=== PATIENT | male | born 1975 | race Caucasian/White ===

== ENCOUNTER 2024-10-17 11:47 | Outpatient (CLI) | payer MEDICARE, MEDICAID, SELFPAY ==
--- NOTE | 2024-10-17 12:14 | DI.RAD_ITS ---
Exam(s) XR CHEST 2V PA LATERAL EXAM: XR CHEST 2V PA LATERAL CLINICAL HISTORY: COUGH, R05.9 TECHNIQUE: 2D digital imaging was performed. Two views. COMPARISON: No exams were available for comparison FINDINGS: HEART: Normal size. Aorta: Not dilated. PULMONARY VASCULATURE: Normal. MEDIASTINUM: Unremarkable. LUNGS: Clear. PLEURAL SPACE: No pleural effusion or pneumothorax. BONE:Unremarkable for age. SOFT TISSUES: Unremarkable. IMPRESSION: No acute abnormality. DATA REPOSITORY: RADIATION DOSE DELIVERED:
== END 2024-10-17 12:07 ==
PROVIDERS: Visit Provider Nurse Practitioner Family
DX: R05.9 Cough, unspecified (principal)
CPT/HCPCS: 71046

== ENCOUNTER → 2025-01-25 13:08 | Outpatient (BNVA) | payer MEDICARE, MEDICAID, SELFPAY | PROVIDERS: PCP Nurse Practitioner Family; Referring Provider Nurse Practitioner Family; Visit Provider Physical Therapy Assistant | DX: Z12.11 Encounter for screening for malignant neoplasm of colon (principal) | CPT/HCPCS: S0285 ==

== ENCOUNTER 2025-02-08 06:35 | Day surgery (SDC) | payer MEDICARE, MEDICAID, SELFPAY ==
[2025-02-08 07:15] VITALS: BP 151/84; PULSE 75; RESP 20; TEMP 36.7; O2SAT 97
[2025-02-08] MEDS: Lactated Ringers 1,000 ML 80 ML IV (07:32)
--- NOTE | 2025-02-08 07:55 | W.COLOREPORT ---
Date of service: 02/08/25 Time of Service: 07:55 Colonoscopy Report Procedure Description: PROCEDURES PERFORMED: 1. Colonoscopy with cold forceps biopsies PREOPERATIVE DIAGNOSIS: Surveillance colonoscopy POSTOPERATIVE DIAGNOSIS: Sigmoid diverticulosis SURGEON: Tulio Louis MD INDICATION FOR PROCEDURE: the patient is a 49-year-old man with no family history of colon cancer due for his for screening colonoscopy. He has no symptoms of concern. He says that he had a colonoscopy many years ago and it was normal. It was done for other reasons. FINDINGS: Normal terminal ileum. Minimal/mild, scattered diverticular changes isolated to the sigmoid colon. There was a little bit of inflammation seen around the sigmoid colon which could represent SCAD. Cold forceps biopsies were taken to assess. No polyps. No significant hemorrhoid disease. SURVEILLANCE interval/FOLLOW-UP: 10 years SPECIMENS: Sigmoid colon biopsies EBL: Minimal COMPLICATIONS: None QUALITY of prep: Excellent Procedure in detail: The patient gave written consent and was in agreement with the indications, the potential risks as well as the benefits of the procedure. They were taken to the endoscopy suite and laid in the left lateral decubitus position. A timeout was performed and anesthesia was administered which was tolerated well. I started the procedure. Digital rectal and visual examination was performed and grossly within normal limits. A well-lubricated flexible colonoscope was then introduced and passed without any notable difficulty all the way to the cecum identified by the ileocecal valve and the appendiceal orifice. The terminal ileum was intubated and looked normal. The scope was then slowly withdrawn with the above-noted findings. The patient tolerated the procedure well and was taken to the PACU in hemodynamically stable condition.
--- NOTE | 2025-02-08 07:56 | W.PM.DSUDISC ---
Date of service: 02/08/25 Discharge Plan Disposition Patient Disposition: Home Discharge Details Attending Provider: Donald Louis Primary Care Provider: Renee Krishnamurthy Home Meds and New Rx's Prescriptions: No Action fluoxetine 40 mg capsule 40 mg PO DAILY mirtazapine 15 mg tablet 15 mg PO DAILY propylthiouracil 50 mg tablet 50 mg PO BID bupropion HCl 150 mg tablet sustained-release 12 hr 150 mg PO DAILY hydroxyzine HCl 10 mg tablet 10 mg PO QHS cholecalciferol (vitamin D3) 25 mcg (1,000 unit) capsule 25 mcg PO DAILY multivitamin Tablet 1 tab PO DAILY polyethylene glycol 3350 17 gram/dose powder 238 g PO ONCE Qty: 238 0RF Rx Instructions: take per colonoscopy instructions bisacodyl [Dulcolax (bisacodyl)] 5 mg tablet,delayed release (DR/EC) 5 mg PO ONCE Qty: 4 0RF Rx Instructions: take per colonoscopy instructions simvastatin 10 mg tablet Patient Comments: pt. thinks he is taking this at night Discharge Instructions Additional Instructions: FINDINGS: No cancer. No polyps. No findings of concern. Mild sigmoid diverticular disease was found. Diverticulosis. This is a very common, benign condition and nothing needs to be done about it. Repeat another colonoscopy in 10 years. Activity:: Activity as Tolerated Diet:: As Tolerated Discharge Orders Discharge Orders: Discharge Order (Routine); Ordered 02/08/25 Ordered By: Donald Louis
--- NOTE | 2025-02-08 08:07 | W.ANESPRE ---
General Info Date of Service Date Performed: 02/08/25 Height: 5 ft 10 in Weight: 93.8 kg Body Mass Index (BMI): 29.7 Surgical Procedure: Operation Date: 02/08/25 08:05 Proposed Procedure Side Surgeon p Colonoscopy Donald Louis MD Actual Procedure Side Surgeon p Colonoscopy Not Applicable Donald Louis MD Meds Allergies and Home Medications Allergies Allergy/AdvReac Type Severity Reaction Status Date / Time No Known Allergies Allergy Verified 02/08/25 07:11 Home Medication ?Medication ?Instructions ?Recorded fluoxetine 40 mg capsule 40 mg PO DAILY 11/15/24 mirtazapine 15 mg tablet 15 mg PO DAILY 11/15/24 propylthiouracil 50 mg tablet 50 mg PO BID 11/15/24 bupropion HCl 150 mg tablet,12 hr 150 mg PO DAILY 11/23/24 sustained-release cholecalciferol (vitamin D3) 25 25 mcg PO DAILY 11/23/24 mcg (1,000 unit) capsule hydroxyzine HCl 10 mg tablet 10 mg PO QHS 11/23/24 multivitamin 1 tab PO DAILY 11/23/24 bisacodyl 5 mg tablet,delayed 5 mg PO ONCE colonscopy bowel prep 01/25/25 release (Dulcolax (bisacodyl)) #4 tabs polyethylene glycol 3350 17 238 g PO ONCE colonoscopy prep 01/25/25 gram/dose oral powder #238 grams simvastatin 10 mg tablet mg 02/08/25 Current Visit Medications: Current Medications Generic Name Dose Route Start Last Admin Trade Name Freq PRN Reason Stop Dose Admin Ringer's Solution 1,000 mls @ 80 mls/hr 02/08/25 06:00 02/08/25 07:32 IV 02/08/25 23:59 80 mls/hr INFUSION SIDNEY Administration IV Miscellaneous Supplies 1 each 02/08/25 06:00 Iv Access IV 02/08/25 23:59 DIRECTED SIDNEY Sodium Chloride 0 ml 02/08/25 06:00 Normal Saline Flush 10 Ml Syr IV 02/08/25 23:59 PRN PRN Sodium Chloride 0 ml 02/08/25 06:00 Normal Saline 10 Ml Vial IJ 02/08/25 23:59 DIRECTED PRN Sterile Water 0 ml 02/08/25 06:00 Water,Injection,Sterile 10 Ml Vial IJ 02/08/25 23:59 DIRECTED PRN PFSH Active Problems Active Problems: Problem Status Onset Code Developmental disability Chronic F89 Hyperthyroidism Chronic E05.90 Generalized anxiety disorder Chronic F41.1 Major depressive disorder Chronic F32.9 Vitamin D deficiency Chronic E55.9 Insomnia Chronic G47.00 Allergic rhinitis Chronic J30.9 Medical History Medical History Hypertension Surgical History Surgical History H/O vasectomy Tobacco Smoking/Tobacco Use Status: Never Passive smoking exposure: No Alcohol Alcohol Intake: current Alcohol intake frequency: a few times a month Alcohol type: beer Substance Use Substance use: Never Substance use type: does not use Details: beer: pt. does not remember Vital Signs and Lab Results Vital Signs Most Recent Vital Signs in EMR: Most Recent Vital Signs Temp Pulse Resp BP Pulse Ox 36.7 C 75 20 151/84 H 97 02/08/25 07:15 02/08/25 07:15 02/08/25 07:15 02/08/25 07:15 02/08/25 07:15 Lab Results Blood Type / Crossmatch: No Data to Display Complete Blood Count: No Data to Display Complete Metabolic Panel: No Data to Display Liver Function Panel: No Data to Display Coagulation Panel: No Data to Display Cardiac Panel: No Data to Display Arterial Blood Gas: No Data to Display Venous Blood Gas: No Data to Display Pancreas Panel: No Data to Display Thyroid Panel: No Data to Display Infectious Disease: No Data to Display Blood Cultures: No Data to Display Toxicology Panel: No Data to Display Anesthesia Assessment and Plan Anesthesia History Personal History: No History of Anesthesia Complications Family History: No Family History of Anesthesia Complications Exercise Tolerance Exercise Tolerance: Metabolic Equivalents>4 Pertinent Negatives Pertinent Negatives: No Symptoms of GERD Cardiac & Pulmonary Exam Cardiac Exam: Normal S1/S2 Heart Sounds Pulmonary Exam: Clear Bilateral Breath Sounds Implantable Cardiac Device Does patient have a Pacemaker or an ICD?: No Airway Exam Known Difficult Airway: No Mallampati Class: 2 Mouth Opening: Normal (> 3cm) Thyromental Distance: Greater than 3 cm Neck Range of Motion: Full ROM Neck Circumference: Normal Teeth Condition: Normal Dentition ASA Classification ASA Score: ASA 2 Emergency Case?: No NPO Status NPO Status: NPO Clears >2 hours, Solids >8 hours Anesthesia Plan Resuscitation Status: Full Code Anesthesia Technique: General Anesthesia Airway Planned: Natural Airway Monitors Used: Standard Monitors
[2025-02-08 08:08] VITALS: BMI 29.7
--- NOTE | 2025-02-08 08:22 | BOWEL_PTH ---
PATIENT: Greg Mendez LOC: [facility] U#:[id number] AGE/SX: 49/M ROOM: RE02/08/[address]: Donald Louis : 1975 BED: DIS: 02/08/2025 SPEC #: [id number] RECD: 02/08/25 12:50 STATUS: ZANE REPrashanth #: [id number] TALIA: 02/08/25 08:[address]: Donald Louis DEPT: Surgical Specimen RECD BY: Marjan Madera ENTERED: 02/08/25 12:51 SP TYPE: Bowel OTHR DR: KRISTYN Negrete Tissues: 1 - BIOPSY BOWEL Procedures: GROSS AND MICRO LEVEL 4 Comments: [id number]
[2025-02-08 08:30] VITALS: BP 141/95; PULSE 75; RESP 16; TEMP 36.2; O2SAT 99
--- NOTE | 2025-02-08 08:39 | W.ANESPOSTOP ---
Postoperative Evaluation Date, Time and Location Date Performed: 02/08/25 Time Performed: 08:39 Patient Location: Day Surgery Unit Vital Signs Most Recent Imported Vital Signs: Most Recent Vital Signs Temp Pulse Resp BP Pulse Ox 36.7 C 75 20 151/84 H 97 02/08/25 07:15 02/08/25 07:15 02/08/25 07:15 02/08/25 07:15 02/08/25 07:15 Pain Score Most Recent Pain Score: Most Recent Pain Score Pain Level 0 02/08/25 07:15 Assessment Mental Status: Awake (Alert & Oriented to Patient Baseline) Airway and Respiratory Function: Patent airway with normal (patient baseline) respiratory exam Cardiovascular Function: Hemodynamically Stable Hydration Status: Adequately Hydrated Nausea & Vomiting: No Nausea or Vomiting Pain: Pt. Denies Any Pain Peripheral Nerve Block: Patient did not receive a nerve block
== END 2025-02-08 09:16 | disposition home or self-care (01) ==
PROVIDERS: PCP Nurse Practitioner Family; Visit Provider Student in an Organized Health Care Education/Training Program
PROC: 0DJD8ZZ Inspection of Lower Intestinal Tract, Via Natural or Artificial Opening Endoscopic (ICD-10-PCS; CPT 45378; principal; 2025-02-08 08:00)
DX: Z12.11 Encounter for screening for malignant neoplasm of colon (principal); K57.30 Diverticulosis of large intestine without perforation or abscess without bleeding
CPT/HCPCS: 45380; 88305; J2003; J2704

== ENCOUNTER 2025-05-26 11:00 | Outpatient (CLI) | payer MEDICARE, MEDICAID, SELFPAY ==
[2025-05-26 14:32] LABS: Abs Immature Grans 0.05 10^3/uL (0.0-0.06); HCT 46.8 % (40.0-50.0); HGB 15.7 g/dL (13.5-17.5); Immature Grans % 0.9 %; MCH 30.1 pg (27.0-33.0); MCHC 33.5 % (32.0-36.0); MCV 90 fL (80-95); MPV 9.8 fL (8.0-11.0); Platelet Count 275 10^3/uL (130-400); RBC 5.22 10^6/uL (4.36-5.78); RDW 13.2 % (11.8-14.1); RDW-SD 43.4 fL; WBC 5.61 10^3/uL (4.4-10.8)
[2025-05-26 15:13] LABS: ALT 44 U/L (16-63); AST 32 U/L (15-37); Albumin 4.2 g/dL (3.4-5.0); Alkaline Phosphatase 90 U/L (46-116); Anion Gap 5.6 mmol/L (3-11); BUN 13 mg/dL (7-18); Bilirubin, Total 0.8 mg/dL (0.2-1.0); CO2 31.4 mmol/L (21.0-32.0); Calcium 8.9 mg/dL (8.5-10.1); Chloride 104 mmol/L (98-107); Estimated GFR 91.12 (mL/min/1.73m2); Glucose 90 mg/dL (74-106); Potassium 3.7 mmol/L (3.5-5.1); Sodium 141 mmol/L (136-145); TSH 2.06 uIU/mL (0.36-3.74); Total Protein 7.6 g/dL (6.4-8.2)
[2025-05-26 16:02] LABS: Calculated LDL 125 mg/dL (<100); Cholesterol 207 mg/dL (<200); HDL Cholesterol 52 mg/dL (>or=40); Triglyceride 150 mg/dL (<150); Vitamin D 25 Total 51 ng/mL (30-100)
[2025-05-26 16:50] LABS: Hemoglobin A1C 5.0 % (<5.7)
[2025-05-26 22:39] LABS: T3, Total 156 ng/dL (97-169)
[2025-05-29 08:59] LABS: HIV-1/2 Ag & Ab Screen Negative (Negative)
[2025-05-31 10:48] LABS: HBs Antibody, Quant <3.1 mIU/mL (See Note); Hepatitis B Surface Antigen Negative (Negative)
[2025-06-07 15:46] LABS: Hepatitis C Ab w Rflx HCV PCR Negative (Negative)
== END 2025-05-26 11:01 | disposition home or self-care (01) ==
LOC: LOS 11:01
PROVIDERS: PCP Nurse Practitioner Family; Visit Provider Nurse Practitioner Family
DX: E05.90 Thyrotoxicosis, unspecified without thyrotoxic crisis or storm (principal); Z11.59 Encounter for screening for other viral diseases; Z11.4 Encounter for screening for human immunodeficiency virus [HIV]; R73.01 Impaired fasting glucose; E55.9 Vitamin D deficiency, unspecified
CPT/HCPCS: 36415; 80053; 80061; 82306; 86704; 86706; 86803; 87340; 87389; 83036; 84439; 84443; 84480; 85025

== ENCOUNTER 2025-06-20 01:12 | Outpatient (CLI) | payer MEDICARE, MEDICAID, SELFPAY ==
--- NOTE | 2025-06-20 06:15 | DI.US_ITS ---
Exam(s) US THYROID EXAM: US THYROID CLINICAL HISTORY: hx of hyperthyroidism,e05.90. TECHNIQUE: Ultrasound thyroid performed using standard protocol. COMPARISON: No exams were available for comparison FINDINGS: ISTHMUS: 3.6 mm RIGHT LOBE: Size: 6.0 x 2.0 x 2.7 cm Echogenicity: Normal. Vascularity: Hypervascular. Nodules: There are no suspicious nodules. There are 2 small cysts present. LEFT LOBE: Size: 5.2 x 1.8 x 2.3 cm Echogenicity: Normal. Vascularity: Hypervascular appear Nodules: None. OTHER FINDINGS: None. IMPRESSION: 1. Hypervascular thyroid gland which can be seen with diffuse thyroid disease including hyperthyroidism. 2. There are no suspicious thyroid nodules. DATA REPOSITORY:
== END 2025-06-20 01:32 ==
LOC: DI 01:12
PROVIDERS: PCP Nurse Practitioner Family; Visit Provider Nurse Practitioner Family
DX: E05.90 Thyrotoxicosis, unspecified without thyrotoxic crisis or storm (principal)
CPT/HCPCS: 76536